=== PATIENT | female | born 1975 | race Caucasian/White ===

== ENCOUNTER 2018-11-04 19:31 | Emergency (ER) | payer MEDICARE ==
[~2018-11-04] VITALS: Ht 160 cm; Wt 86.2 kg
[2018-11-04 19:43] VITALS: BP_SYST 160
[2018-11-04] MEDS ORDERED: HYDROcodone/ACETAMIN 7.5-325 MG TAB PO ONE (21:30)
[2018-11-04 21:50] VITALS: BP_SYST 160
== END 2018-11-04 21:50 | disposition home or self-care (01) ==
LOC: SED 19:31
DX: T22.131A Burn of first degree of right upper arm, initial encounter (principal); S63.602A Unspecified sprain of left thumb, initial encounter; S46.912A Strain of unspecified muscle, fascia and tendon at shoulder and upper arm level, left arm, initial encounter; F32.9 Major depressive disorder, single episode, unspecified; E11.9 Type 2 diabetes mellitus without complications; I10 Essential (primary) hypertension; F17.200 Nicotine dependence, unspecified, uncomplicated; Z90.49 Acquired absence of other specified parts of digestive tract; X97.XXXA Assault by smoke, fire and flames, initial encounter; Y93.89 Activity, other specified; Y92.89 Other specified places as the place of occurrence of the external cause; Y99.8 Other external cause status
CPT/HCPCS: 73030; 81025; 99283

== ENCOUNTER 2019-03-08 19:22 | Emergency (ER) | payer MEDICAID, MEDICARE ==
[~2019-03-08] VITALS: Ht 160 cm; Wt 86.6 kg
[2019-03-08 19:22] VITALS: BP_SYST 142
--- NOTE | 2019-03-08 20:52 | NUR ---
Patient to ER bed 4 to gown for evaluation. Side rails up.
--- NOTE | 2019-03-08 20:55 | NUR ---
Pt complains high blood pressure that started to act up yesterday. Pt states she is 7 weeks experiencing headache, but denies N/V, fever. Pt is G- 4, P -3, A - O , L-3 . Pt was switched over from lisinopril to another type of blood pressure medication but is unsure of what the name is. No other injuries/complaints per patient or noted.
--- NOTE | 2019-03-08 20:57 | NUR ---
ER Dr. Flores at bedside examining patient.
[2019-03-08 21:35] LABS: BILIRUBIN,URINE NEGATIVE (NEGATIVE); BLOOD, URINE NEGATIVE (NEGATIVE); CLARITY/URINE CLEAR (CLEAR); COLOR,URINE YELLOW (YELLOW); GLUCOSE,URINE TRACE (NEGATIVE); KETONES,URINE NEGATIVE (NEGATIVE); LEUKOCYTE ESTERASE ,URINE NEGATIVE (NEGATIVE); NITRITE, URINE NEGATIVE (NEGATIVE); PH,URINE 5.5 (5.0-8.0); PROTEIN URINE NEGATIVE (NEGATIVE); UROBILINOGEN,URINE 0.2 (0.2-1.0)
[2019-03-08] MEDS: NACL 0.9% 1,000 ML IV ONE (21:37)
[2019-03-08] MEDS: ONDANSETRON HCL 4 MG/2 ML VIAL IVP ONE (21:38)
[2019-03-08] MEDS: DIPHENHYDRAMINE INJ 50 MG/ML VIAL IVP ONE (21:38)
--- NOTE | 2019-03-08 21:39 | NUR ---
Medications were given pt tolerated well. NO adverse reaction, will continue to monitor.
[2019-03-08 21:47] LABS: BASOPHILS # (AUTO) 0.1 K/uL (0.0-0.2); BASOPHILS % (AUTO) 0.8 % (0.0-2.0); EOSINOPHILS # (AUTO) 0.6 K/uL (0.0-0.4); EOSINOPHILS % (AUTO) 6.9 % (0.0-4.0); HEMATOCRIT 37.5 % (36-48); HEMOGLOBIN 12.7 g/dL (12.0-16.0); LYMPHOCYTES # (AUTO) 2.4 K/uL (1.0-5.5); LYMPHOCYTES % (AUTO) 28.2 % (20.5-51.5); MEAN CORPUSCULAR HEMOGLOBIN 30 pg (27-31); MEAN CORPUSCULAR HGB CONC 34 % (32-36); MEAN CORPUSCULAR VOLUME 87 fL (79.0-98.0); MONOCYTES # (AUTO) 0.7 K/uL (0.0-1.0); MONOCYTES % (AUTO) 7.8 % (1.7-9.3); NEUTROPHILS # (AUTO) 4.9 K/uL (1.8-7.7); NEUTROPHILS % (AUTO) 56.3 % (40.0-70.0); PLATELET COUNT (AUTO) 241 K/uL (130-430); RED CELL DISTRIBUTION WIDTH 14.1 % (9.0-15.0); WHITE BLOOD COUNT (AUTO) 8.6 K/uL (4.8-10.8)
[2019-03-08 21:58] LABS: CALCIUM 9.1 mg/dL (8.4-11.0); CREATININE 0.87 mg/dL (0.55-1.30); POTASSIUM 3.7 mmol/L (3.5-5.1)
[2019-03-08 21:59] LABS: PROTHROMBIN TIME 10.2 SECS (9.5-12.5)
[2019-03-08 22:22] LABS: ALBUMIN 3.5 g/dL (3.4-4.8); TOTAL BILIRUBIN 0.4 mg/dL (0.0-1.0)
[2019-03-08 23:41] VITALS: BP_SYST 130
--- NOTE | 2019-03-08 23:41 | NUR ---
Patient given written and verbal discharge instructions and verbalizes understanding. ER MD discussed with patient the results and treatment provided. Patient in stable condition. ID arm band removed. IV catheter removed intact and dressing applied, no active bleeding. Rx Tylenol and Zofran given. Patient educated on pain management and to follow up with PMD. Pain Scale 0. Opportunity for questions provided and answered. Medication side effect fact sheet provided.
== END 2019-03-08 23:41 | disposition home or self-care (01) ==
LOC: SED 19:22
DX: O26.891 Other specified pregnancy related conditions, first trimester (principal); G44.209 Tension-type headache, unspecified, not intractable; I10 Essential (primary) hypertension; E11.9 Type 2 diabetes mellitus without complications; F32.9 Major depressive disorder, single episode, unspecified; Z90.49 Acquired absence of other specified parts of digestive tract; Z3A.01 Less than 8 weeks gestation of pregnancy
CPT/HCPCS: 36415; 76801; 76817; 80053; 81003; 81025; 83690; 84702; 85025; 85610; 85730; 86901; 96374; 96375; 99284; J1200; J2405; J7030

== ENCOUNTER 2021-04-07 05:02 | Emergency (ER) | payer OTHER, MEDICAID ==
[~2021-04-07] VITALS: Ht 160 cm; Wt 77.1 kg
[2021-04-07 05:30] VITALS: BP_SYST 120
--- NOTE | 2021-04-07 05:30 | NUR ---
Patient ambulatory to bed 8 with family for evaluation
--- NOTE | 2021-04-07 05:37 | NUR ---
ER at bedside examining patient.
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
[2021-04-07] MEDS ORDERED: KETOROLAC TROMETHAMINE 60 MG/2 ML VIAL IM ONE (05:45)
--- NOTE | 2021-04-07 06:28 | NUR ---
Pt taken to Radiology in stable condition
--- NOTE | 2021-04-07 06:40 | NUR ---
Pt back from Radiology, well tolerated
[2021-04-07] MEDS ORDERED: NAPR-1172 PO (07:26)
[2021-04-07 08:31] VITALS: BP_SYST 120
--- NOTE | 2021-04-07 08:32 | NUR ---
Patient given written and verbal discharge instructions and verbalizes understanding. ER MD discussed with patient the results and treatment provided. Patient in stable condition. ID arm band removed. Rx of Naproxen given. Patient educated on pain management and to follow up with PMD. Pain Scale 0/10. Opportunity for questions provided and answered. Medication side effect fact sheet provided.
== END 2021-04-07 08:31 | disposition home or self-care (01) ==
LOC: SED 05:02
DX: S13.4XXA Sprain of ligaments of cervical spine, initial encounter (principal); I10 Essential (primary) hypertension; E11.9 Type 2 diabetes mellitus without complications; Z90.49 Acquired absence of other specified parts of digestive tract; V49.9XXA Car occupant (driver) (passenger) injured in unspecified traffic accident, initial encounter; Y93.89 Activity, other specified; Y92.413 State road as the place of occurrence of the external cause; Y99.8 Other external cause status
CPT/HCPCS: 70450; 72125; 76376; 96372; 99285; J1885